=== PATIENT | female | born 1940 | race Caucasian/White ===

== ENCOUNTER 2016-03-06 14:45 | Outpatient (CLI) | payer MEDICARE ==
[2016-03-06 15:10] LABS: #Basophils 0.1 thou/uL (0.0-0.2); #Eosinphils 0.6 thou/uL (0.0-0.7); #Lymphocytes 2.8 thou/uL (1.20-3.40); #Monocytes 0.6 thou/uL (0.11-0.59); #Neutrophils 4.8 thou/uL (1.40-6.50); %Basophils 1.1 % (0.0-1.0); %Eosinophils 6.8 % (0.0-10.0); %Lymphocytes 31.4 % (21.0-51.0); %Monocytes 6.6 % (0.0-10.0); %Neutrophils 54.1 % (42.0-75.0); Hemoglobin 14.1 g/dL (12.0-16.0); Mean Corpuscular HGB CONC 33.6 g/dL (32.0-36.0); Mean Corpuscular Hemoglobin 27.6 pg (27.0-31.0); Mean Platelet Volume 7.3 fL (7.4-10.4); Platelet Count 221 thou/uL (130-400); RBC Distribution Width 11.5 % (11.5-14.5); Red Blood Cell (RBC) Count 5.11 mill/uL (4.20-5.40); White Blood Cell (WBC) Count 8.9 thou/uL (4.8-10.8)
[2016-03-06 15:20] LABS: Anion Gap 15 mmol/L (10-20); BUN (Urea Nitrogen) 14 mg/dL (9.8-20.1); Calc. Creatinine Clearance 0 mL/min (70-130); Calcium 9.9 mg/dL (7.8-10.44); Carbon Dioxide 27 mmol/L (23-31); Cardiac Risk 3.6 (Less than 4.5); Chloride 104 mmol/L (98-107); Cholesterol 197 mg/dL (< 200 Desired); Estimated GFR-MDRD 56; Glucose 100 mg/dL (83-110); HDL Cholesterol 55 mg/dL (>60 Neg Risk); LDL Cholesterol, Calculated 94 mg/dL; Potassium 4.6 mmol/L (3.5-5.1); Sodium 141 mmol/L (136-145); Triglycerides 242 mg/dL (Less than 150)
== END 2016-03-06 14:46 | disposition home or self-care (01) ==
LOC: MADLABBHPM 14:45
PROVIDERS: ATTEND Family Medicine
DX: I10 Essential (primary) hypertension (principal)
CPT/HCPCS: 36415; 80048; 80061; 85025

== ENCOUNTER 2016-08-04 14:13 | Outpatient (CLI) | payer MEDICARE | END 2016-08-04 14:14 | disposition home or self-care (01) | LOC: MADEKG 14:13 | PROVIDERS: ATTEND Family Medicine | DX: R07.89 Other chest pain (principal) | CPT/HCPCS: 93005; 93010 ==

== ENCOUNTER 2017-11-19 14:35 | Outpatient (CLI) | payer MEDICARE ==
--- NOTE | 2017-11-19 16:02 | RAD ---
RIGHT KNEE RADIOGRAPHS FOUR VIEWS: Date: 11-19-17 Provided Clinical History: Right knee pain. FINDINGS: No evidence for fracture or other acute osseous abnormality. Tricompartmental osteophyte formation wi th conspicuous medial femorotibial joint space narrowing. Osseous excrescence emanating from the late ral aspect of the lateral femoral epicondyle may reflect osteochondroma and appears similar to 7-14-0 9. Prominent knee joint capsular distention compatible with effusion. IMPRESSION: Advanced right knee degenerative change. POS: ANAI
--- NOTE | 2017-11-19 16:06 | RAD ---
LEFT KNEE RADIOGRAPHS FOUR VIEWS: Date: 11-19-17 Provided Clinical History: Pain. FINDINGS: Tricompartmental osteophyte formation with medial femorotibial joint space narrowing. Mild genu varum . Alignment appears otherwise anatmic. Joint spaces appear otherwise preserved. Knee joint capsular d istention suggesting effusion. IMPRESSION: Advanced degenerative arthrosis of the left knee. POS: ANAI
== END 2017-11-19 14:36 | disposition home or self-care (01) ==
LOC: MADRAD 14:35
PROVIDERS: ATTEND Family Medicine
DX: M25.561 Pain in right knee (principal); M25.562 Pain in left knee; M17.0 Bilateral primary osteoarthritis of knee

== ENCOUNTER 2018-02-01 12:05 | Inpatient (IN) | payer MEDICARE ==
[2018-02-01 13:59] VITALS: BMI 35.9
[2018-02-01] MEDS ORDERED: Ondansetron ODT 4 MG TAB PO PRN (14:46)
[2018-02-01] MEDS: traMADol HCl 50 MG TAB PO PRN (17:16)
[2018-02-01] MEDS: HYDROcodone/Acetaminophen 5/325 mg Tablet PO PRN (19:23)
[2018-02-01] MEDS: Metoprolol Tartrate 50 MG TAB PO SCH (20:35)
[2018-02-01] MEDS: Docusate 100 MG CAP PO SCH (20:35)
--- NOTE | 2018-02-02 00:24 | HP ---
REASON FOR ADMISSION: Swing bed admission for PT/OT s/p right hip fracture HISTORY OF PRESENT ILLNESS: This is a pleasant 77-year-old female with history of hypertension, anxiety, and arthritis, who presented to the emergency room on 01/28/2018 status post fall in her home. The patient states that she tripped on an uneven area of carpet in her home and fell directly on her right hip. She was found to have proximal right femur fracture in the emergency room and therefore was admitted for open reduction and internal fixation by the Orthopedic Team. The patient underwent this surgery on the same day 01/28/[address] Saul Cross. Post-operative course has been uncomplicated thus far. The patient reports that her pain has been well controlled, although she has been somewhat reluctant to get up and ambulate per the physician's orders. She has been transferred here today for a planned continued physical therapy and occupational therapy until she can return home to independent living. The patient today states that she is doing well. She states she has been able to ambulate back and forth to the bathroom; although, is more fatigued than usual with this. She states she did not sleep well last night and her pain is currently not well controlled; although, she has not received any pain medications since arrival. She states she has been eating well and has no other complaints at this time. PAST MEDICAL HISTORY: 1. Hypertension. 2. 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 3. Generalized anxiety disorder. PAST SURGICAL HISTORY: 1. Appendectomy at age 9. 2. Right hip open reduction and internal fixation on 01/28/2018. FAMILY HISTORY: Noncontributory. SOCIAL HISTORY: The patient does not use alcohol, tobacco or illicit drug use. She lives with her grand-daughter [place]. She is . At baseline, she is independent on all of her ADLs. She does not have any advance directives, but does state that she would like to be do not resuscitate. She does not have a designated power of estate planning attorney. MEDICATIONS: 1. Tylenol 1000 mg every 6 hours p.r.n. 2. Flexeril 10 mg twice daily as needed. 3. Colace 100 mg twice daily. 4. Lovenox 40 mg daily. 5. Ferrous sulfate 325 mg once daily. 6. Lisinopril 20 mg once daily. 7. Metoprolol 50 mg twice daily. 8. Zofran 4 mg every 6 hours as needed. 9. MiraLax 17 g daily. 10. Tramadol 50 mg every 6 hours as needed for moderate pain. ALLERGIES: NONE. REVIEW OF SYSTEMS: A 10 point review of systems was completed and negative other than stated above. PHYSICAL EXAMINATION: VITAL SIGNS: The patient weight is 196 pounds. Current vital signs are, blood pressure 152/82, temperature is 98.2, heart rate is 82, respirations 20, and oxygen is 93% on room air. GENERAL: She is alert and oriented x3, in no apparent distress. She is resting calmly in the bed. She is cooperative. HEENT: Pupils are equally round and reactive to light. Sclerae nonicteric. Oropharynx is moist without erythema or exudates. NECK: Supple without thyromegaly or lymphadenopathy. HEART: Regular rate and rhythm. No murmurs, rubs or gallops. LUNGS: Clear to auscultation bilaterally. No wheezing, rales or rhonchi. ABDOMEN: Positive bowel sounds in all 4 quadrants. Soft, nontender and nondistended. EXTREMITIES: Negative for clubbing, cyanosis or edema. SKIN: Positive for right healing hip vertical incision with darshana in place with surrounding ecchymosis. Incision is well approximated with no drainage. NEUROLOGIC: No focal deficits. Cranial nerves 2 through 12 are grossly intact. She is noted to be weak upon ambulation. PSYCH: Negative for any anxiety or depression. LABS AND IMAGING: This morning, she had a CBC with white blood cell count of 6.4, hemoglobin of 9.6, hematocrit 29.3, and platelet count 196. ASSESSMENT AND PLAN: 1. Right hip fracture: s/p ORIF. The patient is on postop day #4. She will be admitted to the medical surgical unit for planned physical therapy and occupational therapy, status post recent fracture and surgery. The patient is already verbalizing her desire to return home as soon as possible. We did discuss the need for further physical therapy before she can return home safely to independent living. A hospital followup will be arranged for her to see Dr. Cross. Her pain will be controlled with hydrocodone, tramadol, and Tylenol as needed. She will be continued on deep venous thrombosis prophylaxis with continuing encouragement to ambulate. 2. Osteoarthritis of bilateral hips and knees. As above, we will continue physical therapy and pain control. 3. Hypertension. Blood pressure is currently well controlled on her home medications. We will continue to monitor. 4. Normocytic anemia. This is likely postoperative in nature as her hemoglobin is 12.4 upon admission. We will continue her on a daily iron supplement with stool softeners. 5. Constipation. The patient was noted to have constipation prior to her admission here today. We will continue her on a daily bowel regimen. 6. Deep venous thrombosis prophylaxis. The patient will be continued on Lovenox. 7. Code status. The patient is DNR per her wishes. 8. Disposition. I anticipate the patient needing at least 1 to 2 weeks prior to being able to discharge home. Although, she continues to be anxious to return home as soon as possible. We will continue to assess this on a daily basis. Job ID: [id number] MTDD
[2018-02-02] MEDS: traMADol HCl 50 MG TAB PO PRN (00:40)
[2018-02-02] MEDS: HYDROcodone/Acetaminophen 5/325 mg Tablet PO PRN ×4 (02:26→23:45)
[2018-02-02 05:11] LABS: #Basophils 0.1 thou/uL (0.0-0.2); #Eosinphils 0.7 thou/uL (0.0-0.7); #Monocytes 0.6 thou/uL (0.11-0.59); #Neutrophils 4.7 thou/uL (1.40-6.50); %Basophils 1.6 % (0.0-1.0); %Eosinophils 8.9 % (0.0-10.0); %Lymphocytes 24.5 % (21.0-51.0); %Monocytes 7.1 % (0.0-10.0); %Neutrophils 57.9 % (42.0-75.0); Hemoglobin 9.6 g/dL (12.0-16.0); Mean Corpuscular HGB CONC 32.6 g/dL (32.0-36.0); Mean Corpuscular Hemoglobin 25.9 pg (27.0-31.0); Mean Corpuscular Volume 79.5 fL (78.0-98.0); Mean Platelet Volume 6.9 fL (7.4-10.4); Platelet Count 206 thou/uL (130-400); Red Blood Cell (RBC) Count 3.71 mill/uL (4.20-5.40); White Blood Cell (WBC) Count 8.2 thou/uL (4.8-10.8)
[2018-02-02 05:17] LABS: Anion Gap 11 mmol/L (10-20); BUN (Urea Nitrogen) 16 mg/dL (9.8-20.1); Calc. Creatinine Clearance 88 mL/min (70-130); Calcium 8.7 mg/dL (7.8-10.44); Carbon Dioxide 27 mmol/L (23-31); Chloride 106 mmol/L (98-107); Estimated GFR-MDRD 72; Glucose 117 mg/dL (83-110); Potassium 3.8 mmol/L (3.5-5.1); Sodium 140 mmol/L (136-145)
[2018-02-02] MEDS: Metoprolol Tartrate 50 MG TAB PO SCH ×2 (08:51→20:30)
[2018-02-02] MEDS: Polyethylene Glycol 3350 17 GM Packet PO SCH (08:51)
[2018-02-02] MEDS: Enoxaparin Sodium 40 MG/0.4 ML SYRINGE SC SCH (08:51)
[2018-02-02] MEDS: Ferrous Sulfate 325 MG TAB PO SCH (08:51)
[2018-02-02] MEDS: Lisinopril 10 MG TAB PO SCH (08:52)
[2018-02-02] MEDS: Docusate 100 MG CAP PO SCH ×2 (08:53→20:30)
[2018-02-02] MEDS ORDERED: Metoprolol Tartrate 50 MG TAB PO SCH (09:00)
[2018-02-02] MEDS: busPIRone HCl 5 MG TAB PO SCH (20:30)
[2018-02-02] MEDS: Cyclobenzaprine 10 MG TAB PO PRN (23:48)
[2018-02-03] MEDS: traMADol HCl 50 MG TAB PO PRN ×2 (00:48→08:42)
[2018-02-03] MEDS: Acetaminophen 500 MG TAB PO PRN (03:27)
[2018-02-03] MEDS: HYDROcodone/Acetaminophen 5/325 mg Tablet PO PRN ×3 (06:25→20:55)
[2018-02-03] MEDS: Docusate 100 MG CAP PO SCH ×2 (08:39→20:54)
[2018-02-03] MEDS: Enoxaparin Sodium 40 MG/0.4 ML SYRINGE SC SCH (08:39)
[2018-02-03] MEDS: Lisinopril 10 MG TAB PO SCH (08:39)
[2018-02-03] MEDS: Metoprolol Tartrate 50 MG TAB PO SCH ×2 (08:40→20:54)
[2018-02-03] MEDS: busPIRone HCl 5 MG TAB PO SCH ×2 (08:40→20:54)
[2018-02-03] MEDS: Ferrous Sulfate 325 MG TAB PO SCH (08:40)
[2018-02-03] MEDS: Polyethylene Glycol 3350 17 GM Packet PO SCH (08:45)
[2018-02-03] MEDS: Cyclobenzaprine 10 MG TAB PO PRN ×2 (09:40→20:54)
[2018-02-03] MEDS ORDERED: Cyclobenzaprine 10 MG TAB PO SCH (11:00)
[2018-02-04] MEDS: traMADol HCl 50 MG TAB PO PRN ×2 (02:17→23:09)
[2018-02-04] MEDS: HYDROcodone/Acetaminophen 5/325 mg Tablet PO PRN ×3 (04:25→20:29)
[2018-02-04] MEDS: busPIRone HCl 5 MG TAB PO SCH ×2 (07:44→20:28)
[2018-02-04] MEDS: Ferrous Sulfate 325 MG TAB PO SCH (07:45)
[2018-02-04] MEDS: Lisinopril 10 MG TAB PO SCH (07:45)
[2018-02-04] MEDS: Enoxaparin Sodium 40 MG/0.4 ML SYRINGE SC SCH (07:45)
[2018-02-04] MEDS: Polyethylene Glycol 3350 17 GM Packet PO SCH (07:45)
[2018-02-04] MEDS: Cyclobenzaprine 10 MG TAB PO PRN ×2 (07:45→20:30)
[2018-02-04] MEDS: Metoprolol Tartrate 50 MG TAB PO SCH ×2 (07:45→20:29)
[2018-02-04] MEDS: Docusate 100 MG CAP PO SCH ×2 (07:46→20:28)
[2018-02-05] MEDS: Acetaminophen 500 MG TAB PO PRN (00:57)
[2018-02-05] MEDS: HYDROcodone/Acetaminophen 5/325 mg Tablet PO PRN ×3 (03:50→21:18)
[2018-02-05] MEDS: Metoprolol Tartrate 50 MG TAB PO SCH ×2 (09:31→20:03)
[2018-02-05] MEDS: Polyethylene Glycol 3350 17 GM Packet PO SCH (09:31)
[2018-02-05] MEDS: Enoxaparin Sodium 40 MG/0.4 ML SYRINGE SC SCH (09:31)
[2018-02-05] MEDS: Docusate 100 MG CAP PO SCH ×2 (09:31→20:04)
[2018-02-05] MEDS: Lisinopril 10 MG TAB PO SCH (09:31)
[2018-02-05] MEDS: Ferrous Sulfate 325 MG TAB PO SCH (09:31)
[2018-02-05] MEDS: busPIRone HCl 5 MG TAB PO SCH ×2 (09:31→20:04)
[2018-02-05] MEDS: Famotidine 20 MG TAB PO SCH (18:31)
[2018-02-05] MEDS: traZODone HCl 50 MG TAB PO PRN (20:02)
[2018-02-06] MEDS: Cyclobenzaprine 10 MG TAB PO PRN (01:13)
[2018-02-06] MEDS: traMADol HCl 50 MG TAB PO PRN (01:13)
[2018-02-06] MEDS: HYDROcodone/Acetaminophen 5/325 mg Tablet PO PRN ×3 (05:41→20:31)
[2018-02-06] MEDS: Docusate 100 MG CAP PO SCH ×2 (08:59→20:28)
[2018-02-06] MEDS: Ferrous Sulfate 325 MG TAB PO SCH (08:59)
[2018-02-06] MEDS: Lisinopril 10 MG TAB PO SCH (08:59)
[2018-02-06] MEDS: Enoxaparin Sodium 40 MG/0.4 ML SYRINGE SC SCH (09:00)
[2018-02-06] MEDS: busPIRone HCl 5 MG TAB PO SCH ×2 (09:00→20:28)
[2018-02-06] MEDS: Metoprolol Tartrate 50 MG TAB PO SCH ×2 (09:00→20:28)
[2018-02-06] MEDS: Polyethylene Glycol 3350 17 GM Packet PO SCH (09:01)
[2018-02-06] MEDS: Famotidine 20 MG TAB PO SCH (17:22)
[2018-02-07] MEDS: Cyclobenzaprine 10 MG TAB PO PRN (00:32)
[2018-02-07] MEDS: traMADol HCl 50 MG TAB PO PRN (00:33)
[2018-02-07] MEDS: HYDROcodone/Acetaminophen 5/325 mg Tablet PO PRN ×2 (03:46→19:04)
[2018-02-07] MEDS: Ferrous Sulfate 325 MG TAB PO SCH (09:12)
[2018-02-07] MEDS: Lisinopril 10 MG TAB PO SCH (09:12)
[2018-02-07] MEDS: Enoxaparin Sodium 40 MG/0.4 ML SYRINGE SC SCH (09:12)
[2018-02-07] MEDS: Polyethylene Glycol 3350 17 GM Packet PO SCH (09:12)
[2018-02-07] MEDS: Docusate 100 MG CAP PO SCH ×3 (09:13→20:48)
[2018-02-07] MEDS: busPIRone HCl 5 MG TAB PO SCH ×2 (09:13→20:48)
[2018-02-07] MEDS: Metoprolol Tartrate 50 MG TAB PO SCH ×2 (09:13→20:48)
[2018-02-07] MEDS: Famotidine 20 MG TAB PO SCH (17:36)
[2018-02-07] MEDS: traZODone HCl 50 MG TAB PO PRN (20:48)
[2018-02-08] MEDS: HYDROcodone/Acetaminophen 5/325 mg Tablet PO PRN ×3 (02:46→20:31)
[2018-02-08 05:21] LABS: #Basophils 0.1 thou/uL (0.0-0.2); #Eosinphils 0.6 thou/uL (0.0-0.7); #Monocytes 0.6 thou/uL (0.11-0.59); #Neutrophils 3.4 thou/uL (1.40-6.50); %Basophils 1.4 % (0.0-1.0); %Eosinophils 9.2 % (0.0-10.0); %Lymphocytes 29.7 % (21.0-51.0); %Monocytes 8.7 % (0.0-10.0); %Neutrophils 51.1 % (42.0-75.0); Hemoglobin 9.4 g/dL (12.0-16.0); Mean Corpuscular Hemoglobin 26.8 pg (27.0-31.0); Mean Platelet Volume 6.6 fL (7.4-10.4); Platelet Count 244 thou/uL (130-400); RBC Distribution Width 15.2 % (11.5-14.5); Red Blood Cell (RBC) Count 3.51 mill/uL (4.20-5.40); White Blood Cell (WBC) Count 6.6 thou/uL (4.8-10.8)
[2018-02-08] MEDS: busPIRone HCl 5 MG TAB PO SCH ×2 (08:37→20:29)
[2018-02-08] MEDS: Docusate 100 MG CAP PO SCH ×2 (08:37→20:29)
[2018-02-08] MEDS: Ferrous Sulfate 325 MG TAB PO SCH (08:37)
[2018-02-08] MEDS: Polyethylene Glycol 3350 17 GM Packet PO SCH (08:38)
[2018-02-08] MEDS: Lisinopril 10 MG TAB PO SCH (08:38)
[2018-02-08] MEDS: Metoprolol Tartrate 50 MG TAB PO SCH ×2 (08:38→20:29)
[2018-02-08] MEDS: Enoxaparin Sodium 40 MG/0.4 ML SYRINGE SC SCH (08:39)
[2018-02-08] MEDS: Famotidine 20 MG TAB PO SCH (17:34)
[2018-02-08] MEDS: traZODone HCl 50 MG TAB PO PRN (20:30)
[2018-02-09] MEDS: traMADol HCl 50 MG TAB PO PRN (00:02)
[2018-02-09] MEDS: Cyclobenzaprine 10 MG TAB PO PRN ×3 (00:02→23:33)
[2018-02-09] MEDS: Lisinopril 10 MG TAB PO SCH (07:58)
[2018-02-09] MEDS: Docusate 100 MG CAP PO SCH ×2 (07:58→20:55)
[2018-02-09] MEDS: HYDROcodone/Acetaminophen 5/325 mg Tablet PO PRN ×2 (07:59→23:33)
[2018-02-09] MEDS: busPIRone HCl 5 MG TAB PO SCH ×2 (08:00→20:55)
[2018-02-09] MEDS: Ferrous Sulfate 325 MG TAB PO SCH (08:00)
[2018-02-09] MEDS: Metoprolol Tartrate 50 MG TAB PO SCH ×2 (08:00→20:55)
[2018-02-09] MEDS: Enoxaparin Sodium 40 MG/0.4 ML SYRINGE SC SCH (08:01)
[2018-02-09] MEDS: Polyethylene Glycol 3350 17 GM Packet PO SCH (08:02)
[2018-02-09] MEDS: Famotidine 20 MG TAB PO SCH (17:24)
[2018-02-10] MEDS: traMADol HCl 50 MG TAB PO PRN ×2 (05:07→20:15)
[2018-02-10] MEDS: Enoxaparin Sodium 40 MG/0.4 ML SYRINGE SC SCH (07:32)
[2018-02-10] MEDS: Polyethylene Glycol 3350 17 GM Packet PO SCH (07:33)
[2018-02-10] MEDS: Metoprolol Tartrate 50 MG TAB PO SCH ×2 (07:33→20:12)
[2018-02-10] MEDS: Docusate 100 MG CAP PO SCH ×2 (07:33→07:35)
[2018-02-10] MEDS: HYDROcodone/Acetaminophen 5/325 mg Tablet PO PRN ×2 (07:33→18:55)
[2018-02-10] MEDS: busPIRone HCl 5 MG TAB PO SCH ×2 (07:33→20:10)
[2018-02-10] MEDS: Ferrous Sulfate 325 MG TAB PO SCH (07:34)
[2018-02-10] MEDS: Lisinopril 10 MG TAB PO SCH (07:34)
[2018-02-10] MEDS: Cyclobenzaprine 10 MG TAB PO PRN (07:35)
[2018-02-10] MEDS: Famotidine 20 MG TAB PO SCH (17:52)
[2018-02-10] MEDS: traZODone HCl 50 MG TAB PO PRN (20:10)
[2018-02-11] MEDS: Cyclobenzaprine 10 MG TAB PO PRN (02:07)
[2018-02-11] MEDS: Acetaminophen 500 MG TAB PO PRN (02:07)
[2018-02-11 08:35] VITALS: BP 175/81; TEMP 98
[2018-02-11] MEDS: Enoxaparin Sodium 40 MG/0.4 ML SYRINGE SC SCH (08:38)
[2018-02-11] MEDS: Metoprolol Tartrate 50 MG TAB PO SCH (08:40)
[2018-02-11] MEDS: busPIRone HCl 5 MG TAB PO SCH (08:40)
[2018-02-11] MEDS: Docusate 100 MG CAP PO SCH (08:40)
[2018-02-11] MEDS: Lisinopril 10 MG TAB PO SCH (08:41)
[2018-02-11] MEDS: Polyethylene Glycol 3350 17 GM Packet PO SCH (08:41)
[2018-02-11] MEDS: Ferrous Sulfate 325 MG TAB PO SCH (08:41)
[2018-02-11] MEDS: HYDROcodone/Acetaminophen 5/325 mg Tablet PO PRN (14:28)
--- NOTE | 2018-02-13 10:04 | DIS ---
DATE OF ADMISSION: 02/01/2018 DATE OF DISCHARGE: 02/11/2018 PRIMARY DIAGNOSIS: Right hip fracture, status post open reduction and internal fixation. SECONDARY DIAGNOSES: 1. Generalized deconditioning. 2. Acute anxiety. 3. Normocytic anemia. 4. Hypertension. 5. Constipation. HOSPITAL COURSE: This is a pleasant 77-year-old female with past medical history significant for hypertension and anxiety that sustained a ground level fall in her home on January 28, 2018. She was admitted to [facility] that same day and underwent open reduction and internal fixation by Dr. Saul Cross. Her postoperative course was uncomplicated and was transferred to [facility] on 02/01/2018 for planned physical therapy and occupational therapy. The patient has progressed well since admission and she is now ambulatory with a rolling walker, walking between 250 and 300 feet without any significant unsteadiness. The patient has been able to resume independence on her ADLs and was seen by her orthopedic surgeon yesterday who cleared her for discharge. While in the hospital, the patient's blood pressure medication was adjusted due to elevated blood pressure readings as well as she was started back on her anxiety medication due to persistent daily uncontrolled symptoms. The patient had improvement on both conditions prior to discharge and on day of discharge, was ambulatory with good control of her pain and requesting to be sent home. DISCHARGE MEDICATIONS: Medications upon discharge: 1. Hydrocodone-acetaminophen 5-325 mg one tab every 8 hours as needed, dispensed #20. 2. Buspirone 5 mg twice daily. 3. Cyclobenzaprine 10 mg every 8 hours as needed. 4. Ferrous sulfate 325 mg once daily. 5. Metoprolol 50 mg twice daily. 6. Lisinopril 20 mg twice daily. CONDITION UPON DISCHARGE: Good. ACTIVITY UPON DISCHARGE: She is to be walking with a rolling walker with fall risk precautions. No specific orthopedic limitations. DIET UPON DISCHARGE: She will continue a regular diet. FOLLOWUP: The patient will establish care with outpatient physical therapy center to continue her therapy 2 times a week for an additional 6 weeks as well as return to PCP office, Dr. Browne in 2 weeks. Job ID: [id number]
== END 2018-02-11 15:30 | disposition home or self-care (01) | DRG 561 ==
LOC: MADMS 12:05
PROVIDERS: ADMIT Family Medicine; ATTEND Family Medicine
DX: S72.001D Fracture of unspecified part of neck of right femur, subsequent encounter for closed fracture with routine healing (principal); R53.81 Other malaise; F41.9 Anxiety disorder, unspecified; D64.9 Anemia, unspecified; Z66 Do not resuscitate; I10 Essential (primary) hypertension; K59.00 Constipation, unspecified; M16.0 Bilateral primary osteoarthritis of hip; M17.0 Bilateral primary osteoarthritis of knee; Z90.89 Acquired absence of other organs; Z98.890 Other specified postprocedural states; Z79.899 Other long term (current) drug therapy; W01.0XXD Fall on same level from slipping, tripping and stumbling without subsequent striking against object, subsequent encounter
CPT/HCPCS: 36415; 80048; 85025; G8978-GP-CL; G8979-GP-CJ; G8987-GO-CK; G8988-GO-CH; J1650

== ENCOUNTER 2018-07-04 12:33 | Emergency (ER) | payer MEDICARE ==
[2018-07-04 12:54] LABS: Bilirubin Negative (Negative); Blood, Urine Negative (Negative); Clarity Hazy (Clear); Glucose, Urine (Dipstick) Negative (Negative); Leukocyte Moderate (Negative); Nitrite Positive (Negative); Protein, Urine (Dipstick) Negative (Neg-Trace); Urobilinogen 0.2 mg/dL (0.2-1.0)
[2018-07-04 12:55] LABS: Specific Gravity, Urine 1.009 (1.002-1.036)
[2018-07-04 12:59] LABS: Bacteria/HPF 2+ HPF (None Seen); RBC/HPF None Seen HPF (0-3); Squamous Epithelial 0-3 HPF (0-3)
[2018-07-04 13:51] LABS: #Basophils 0.1 thou/uL (0.0-0.2); #Eosinphils 0.6 thou/uL (0.0-0.7); #Lymphocytes 2.1 thou/uL (1.20-3.40); #Monocytes 0.5 thou/uL (0.11-0.59); %Basophils 1.5 % (0.0-1.0); %Eosinophils 10.2 % (0.0-10.0); %Lymphocytes 33.4 % (21.0-51.0); %Neutrophils 47.9 % (42.0-75.0); Hemoglobin 10.7 g/dL (12.0-16.0); Mean Corpuscular HGB CONC 31.3 g/dL (32.0-36.0); Mean Corpuscular Hemoglobin 24.6 pg (27.0-31.0); Mean Corpuscular Volume 78.6 fL (78.0-98.0); Platelet Count 230 thou/uL (130-400); RBC Distribution Width 13.1 % (11.5-14.5); Red Blood Cell (RBC) Count 4.32 mill/uL (4.20-5.40); White Blood Cell (WBC) Count 6.3 thou/uL (4.8-10.8)
--- NOTE | 2018-07-04 13:54 | CT ---
CT Brain WO Con: 07/04/2018 1:34 PM CLINICAL HISTORY: Head injury. IMAGING TECHNIQUE: Multiple CT images were obtained of the brain without IV contrast. COMPARISON: None. FINDINGS: Infarct: No acute infarct evident. Hemorrhage: None.. Hydrocephalus: None.. Basal cisterns: Normal.. Cerebral parenchyma: There is mild chronic small vessel white matter ischemic change.. Midline shift: None.. Cerebellum: Normal. Brainstem: Normal. OTHER: Calvarium: Intact.. Visualized Paranasal sinuses: Clear.. Extracranial soft tissues:Normal. IMPRESSION: No acute intracranial abnormality.
[2018-07-04 13:57] LABS: INR-International Normal Ratio 0.9; Prothrombin Time 12.7 SEC (12.0-14.7)
[2018-07-04 14:09] LABS: ALT (SGPT) 8 U/L (8-55); AST (SGOT) 12 U/L (5-34); Albumin 3.8 g/dL (3.4-4.8); Alkaline Phosphatase 79 U/L (40-150); Anion Gap 10 mmol/L (10-20); BUN (Urea Nitrogen) 18 mg/dL (9.8-20.1); Bilirubin, Total 0.6 mg/dL (0.2-1.2); Calc. Creatinine Clearance 0 mL/min (70-130); Calcium 9.4 mg/dL (7.8-10.44); Carbon Dioxide 27 mmol/L (23-31); Chloride 108 mmol/L (98-107); Estimated GFR-MDRD 60; Globulin 2.9 g/dL (2.4-3.5); Glucose 102 mg/dL (83-110); Potassium 4.9 mmol/L (3.5-5.1); Protein, Total 6.7 g/dL (6.0-8.3); Sodium 140 mmol/L (136-145)
[2018-07-04] MEDS ORDERED: Cephalexin 250 MG CAP ONE (14:16)
[2018-07-04] MEDS ORDERED: Aspirin Chewable 81 MG TAB ONE (14:16)
== END 2018-07-04 14:25 | disposition home or self-care (01) ==
LOC: MADERS 12:33
DX: N39.0 Urinary tract infection, site not specified (principal); R47.1 Dysarthria and anarthria; E78.5 Hyperlipidemia, unspecified; I10 Essential (primary) hypertension; Z79.899 Other long term (current) drug therapy
CPT/HCPCS: 36415; 70450; 80053; 81003; 81015; 84484; 85025; 85610; 87077; 87086; 87186; 93005

== ENCOUNTER 2018-09-17 14:54 | Emergency (ER) | payer MEDICARE ==
--- NOTE | 2018-09-17 16:02 | RAD ---
LEFT KNEE 4 VIEWS: HISTORY: Left knee pain COMPARISON: 11/19/2017 FINDINGS: Advanced degenerative changes are again seen. No fracture, dislocation or bony destruction is identif ied.
== END 2018-09-17 16:16 | disposition home or self-care (01) ==
LOC: MADERS 14:54
DX: M17.12 Unilateral primary osteoarthritis, left knee (principal); E78.5 Hyperlipidemia, unspecified; I10 Essential (primary) hypertension

== ENCOUNTER 2019-02-26 14:19 | Emergency (ER) | payer MEDICARE ==
[~2019-02-26 14:19] MED LIST: Iopamidol 370 76% 125 ML VIAL FS ONE; Sodium Chloride 0.9% 100 ML BAG ONE
[2019-02-26] MEDS ORDERED: Aspirin Chewable 81 MG TAB ONE (14:59)
[2019-02-26] MEDS ORDERED: Nitroglycerin 0.4 MG TAB 1 EACH ONE (14:59)
--- NOTE | 2019-02-26 15:04 | RAD ---
XR Chest 1 View Portable HISTORY: Dyspnea COMPARISON: 01/28/2018 FINDINGS: The heart size is normal. The lungs are well expanded without focal areas of consolidation, pneumothorax or pleural effusions. IMPRESSION: No radiographic evidence of acute cardiopulmonary process.
[2019-02-26 15:14] LABS: ALT (SGPT) 10 U/L (8-55); AST (SGOT) 21 U/L (5-34); Albumin 4.1 g/dL (3.4-4.8); Alkaline Phosphatase 102 U/L (40-110); Anion Gap 18 mmol/L (10-20); BUN (Urea Nitrogen) 17 mg/dL (9.8-20.1); Bilirubin, Total 0.8 mg/dL (0.2-1.2); Calc. Creatinine Clearance 0 mL/min (70-130); Calcium 9.4 mg/dL (7.8-10.44); Carbon Dioxide 19 mmol/L (23-31); Chloride 104 mmol/L (98-107); Estimated GFR-MDRD 64; Globulin 3.3 g/dL (2.4-3.5); Glucose 122 mg/dL (83-110); Lipase 29 U/L (8-78); Potassium 4.3 mmol/L (3.5-5.1); Protein, Total 7.4 g/dL (6.0-8.3); Sodium 137 mmol/L (136-145)
[2019-02-26 15:20] LABS: #Basophils 0.1 thou/uL (0.0-0.2); #Eosinphils 0.5 thou/uL (0.0-0.7); #Lymphocytes 2.1 thou/uL (1.20-3.40); #Monocytes 0.6 thou/uL (0.11-0.59); #Neutrophils 7.9 thou/uL (1.40-6.50); %Basophils 0.9 % (0.0-1.0); %Eosinophils 4.2 % (0.0-10.0); %Lymphocytes 18.5 % (21.0-51.0); %Monocytes 5.7 % (0.0-10.0); %Neutrophils 70.7 % (42.0-75.0); Hemoglobin 9.6 g/dL (12.0-16.0); Hypochromia SLIGHT = 6-15 cells (100X) (0-5/hpf); MDiff Complete? YES; Mean Corpuscular HGB CONC 29.8 g/dL (32.0-36.0); Mean Corpuscular Hemoglobin 20.6 pg (27.0-31.0); Mean Corpuscular Volume 69.2 fL (78.0-98.0); Mean Platelet Volume 7.9 fL (7.4-10.4); Microcytosis SLIGHT = 6-15 cells (100X) (0-5/hpf); Platelet Count 270 thou/uL (130-400); RBC Distribution Width 13.2 % (11.5-14.5); Red Blood Cell (RBC) Count 4.67 mill/uL (4.20-5.40); White Blood Cell (WBC) Count 11.2 thou/uL (4.8-10.8)
[2019-02-26 15:28] LABS: Bilirubin Negative (Negative); Blood, Urine Negative (Negative); Clarity Hazy (Clear); Glucose, Urine (Dipstick) Negative (Negative); Leukocyte Small (Negative); Nitrite Negative (Negative); Protein, Urine (Dipstick) Negative (Neg-Trace); Urobilinogen 0.2 mg/dL (Less than 2)
[2019-02-26 15:35] LABS: Bacteria/HPF Rare-Few HPF (None Seen); Mucous/LPF 2+ LPF (<2+); RBC/HPF None Seen HPF (0-3)
--- NOTE | 2019-02-26 16:05 | CT ---
CT ANGIO OF CHEST PERFORMED WITH INTRAVENOUS CONTRAST ENHANCEMENT WITH 3D RECONSTRUCTIONS: 02/26/19 HISTORY: Chest pain. The lungs are clear of any infiltrative process. There is no significant mediastinal or hilar adenopathy. A large hiatal hernia is noted. Pulmonary arteries are well opacified. There is no CT evidence for pulmonary embolus. Gallbladder is distended. There is gallbladder wall thickening and a large gallstone is noted. IMPRESSION: 1. No CT evidence of pulmonary embolus. 2. Distended gallbladder with gallbladder wall thickening and large gallstone. 3. Large hiatal hernia. POS: OFF
[2019-02-26] MEDS ORDERED: Piperacillin/Tazobactam 3.375 GM VIAL ONE (16:17)
[2019-02-26] MEDS ORDERED: Sodium Chloride 0.9% 100 ML ONE (16:18)
== END 2019-02-26 17:30 | disposition short-term general hospital (02) ==
LOC: MADERS 14:19
DX: K80.00 Calculus of gallbladder with acute cholecystitis without obstruction (principal); D50.9 Iron deficiency anemia, unspecified; E78.5 Hyperlipidemia, unspecified; I10 Essential (primary) hypertension; Z79.82 Long term (current) use of aspirin; Z79.899 Other long term (current) drug therapy
CPT/HCPCS: 71045; 71275; 80053; 81003; 81015; 83690; 83880; 84484; 85025; 85379; 93005; 94760; 96365; J2543; J3490; Q9967

== ENCOUNTER 2021-08-02 14:59 | Outpatient (CLI) | payer MEDICARE ==
[2021-08-02 15:48] LABS: #Basophils 0.1 thou/uL (0.0-0.2); #Eosinphils 0.7 thou/uL (0.0-0.7); #Lymphocytes 2.5 thou/uL (1.20-3.40); #Monocytes 0.5 thou/uL (0.11-0.59); %Basophils 0.7 % (0.0-1.0); %Eosinophils 7.6 % (0.0-10.0); %Lymphocytes 28.3 % (21.0-51.0); %Neutrophils 57.3 % (42.0-75.0); Hemoglobin 9.7 g/dL (12.0-16.0); Mean Corpuscular HGB CONC 29.4 g/dL (32.0-36.0); Mean Corpuscular Hemoglobin 19.8 pg (27.0-31.0); Mean Corpuscular Volume 67.5 fL (78.0-98.0); Mean Platelet Volume 9.2 fL (7.4-10.4); Platelet Count 252 thou/uL (130-400); RBC Distribution Width 15.7 % (11.5-14.5); White Blood Cell (WBC) Count 8.8 thou/uL (4.8-10.8)
[2021-08-02 15:49] LABS: Anisocytosis SLIGHT = 6-15 cells (100X) (0-5/hpf); Hypochromia SLIGHT = 6-15 cells (100X) (0-5/hpf); MDiff Complete? YES; Microcytosis SLIGHT = 6-15 cells (100X) (0-5/hpf); Platelet Morphology Comment Appears Adequate
[2021-08-02 15:52] LABS: ALT (SGPT) 10 U/L (8-55); AST (SGOT) 16 U/L (5-34); Albumin 3.9 g/dL (3.4-4.8); Alkaline Phosphatase 75 U/L (40-110); Anion Gap 17 mmol/L (10-20); BUN (Urea Nitrogen) 24 mg/dL (9.8-20.1); Bilirubin, Total 0.4 mg/dL (0.2-1.2); Calc. Creatinine Clearance 0 mL/min (70-130); Calcium 9.5 mg/dL (7.8-10.44); Carbon Dioxide 23 mmol/L (23-31); Chloride 107 mmol/L (98-107); Globulin 3.2 g/dL (2.4-3.5); Glucose 110 mg/dL (83-110); Potassium 4.7 mmol/L (3.5-5.1); Protein, Total 7.1 g/dL (5.8-8.1); Sodium 142 mmol/L (136-145)
[2021-08-02 22:09] LABS: Hemoglobin A1c 5.8 % (4.0-6.0)
== END 2021-08-02 15:00 | disposition home or self-care (01) ==
LOC: MADLAB 14:59
PROVIDERS: ATTEND Family Medicine
DX: R53.83 Other fatigue (principal); R42 Dizziness and giddiness
CPT/HCPCS: 36415; 80053; 83036; 84443; 85025

== ENCOUNTER 2022-02-10 16:27 | Emergency (ER) | payer MEDICARE ==
[2022-02-10] MEDS ORDERED: predniSONE 20 MG TAB ONE ×2 (18:15→18:16)
[2022-02-10] MEDS ORDERED: predniSONE 10 MG TAB ONE (18:15)
[2022-02-10] MEDS ORDERED: diphenhydrAMINE 25 MG CAP ONE (18:15)
== END 2022-02-10 18:20 | disposition home or self-care (01) ==
LOC: MADERS 16:27
DX: T63.441A Toxic effect of venom of bees, accidental (unintentional), initial encounter (principal); I10 Essential (primary) hypertension
CPT/HCPCS: 99282; J7512

== ENCOUNTER 2022-04-27 18:12 | Emergency (ER) | payer MEDICARE ==
[~2022-04-27 18:12] MED LIST changes: +Iopamidol 370 76% 100 ML VIAL ONE; -Iopamidol 370 76% 125 ML VIAL FS ONE; -Sodium Chloride 0.9% 100 ML BAG ONE
[2022-04-27] MEDS ORDERED: Ondansetron PF 4 MG/2 ML Vial ONE (18:55)
[2022-04-27] MEDS ORDERED: Mag-Al Plus 1200 MG/1200 MG/120 MG/30 ML UDCUP ONE (19:13)
[2022-04-27] MEDS ORDERED: Lidocaine Viscous Sol 2% 15 ml UD Cup ONE (19:13)
[2022-04-27] MEDS ORDERED: Aspirin Chewable 81 MG TAB ONE (19:13)
[2022-04-27 19:16] LABS: #Basophils 0.1 thou/uL (0.0-0.2); #Eosinphils 0.2 thou/uL (0.0-0.7); #Lymphocytes 1.9 thou/uL (1.20-3.40); #Monocytes 0.4 thou/uL (0.11-0.59); #Neutrophils 6.2 thou/uL (1.40-6.50); %Basophils 1.1 % (0.0-1.0); %Eosinophils 2.1 % (0.0-10.0); %Lymphocytes 21.6 % (21.0-51.0); %Monocytes 4.7 % (0.0-10.0); %Neutrophils 70.6 % (42.0-75.0); Hemoglobin 15.2 g/dL (12.0-16.0); Mean Corpuscular HGB CONC 33.9 g/dL (32.0-36.0); Mean Corpuscular Hemoglobin 27.8 pg (27.0-31.0); Mean Platelet Volume 6.4 fL (7.4-10.4); Platelet Count 253 10x3/uL (130-400); RBC Distribution Width 11.4 % (11.5-14.5); Red Blood Cell (RBC) Count 5.48 mill/uL (4.20-5.40); White Blood Cell (WBC) Count 8.8 10x3/uL (4.8-10.8)
[2022-04-27 19:34] LABS: ALT (SGPT) 7 U/L (8-55); AST (SGOT) 15 U/L (5-34); Albumin 4.2 g/dL (3.4-4.8); Alkaline Phosphatase 74 U/L (40-110); Anion Gap 14 mmol/L (10-20); BUN (Urea Nitrogen) 17 mg/dL (9.8-20.1); Bilirubin, Total 0.8 mg/dL (0.2-1.2); Calc. Creatinine Clearance 0 mL/min (70-130); Calcium 9.9 mg/dL (7.8-10.44); Carbon Dioxide 26 mmol/L (23-31); Chloride 104 mmol/L (98-107); Estimated GFR 59; Glucose 138 mg/dL (83-110); Lipase 25 U/L (8-78); Potassium 3.8 mmol/L (3.5-5.1); Protein, Total 7.2 g/dL (5.8-8.1); Sodium 140 mmol/L (136-145)
[2022-04-27] MEDS ORDERED: HYDROmorphone 0.5 MG/0.5 ML SYRINGE ONE (19:53)
== END 2022-04-27 21:21 | disposition home or self-care (01) ==
LOC: MADERS 18:12
DX: K44.9 Diaphragmatic hernia without obstruction or gangrene (principal); I10 Essential (primary) hypertension
CPT/HCPCS: 74177; 80053; 83690; 84484; 85025; 93005; 96374; 96375; J1170; J2405; Q9967

== ENCOUNTER 2022-06-18 19:38 | Emergency (ER) | payer MEDICARE ==
[2022-06-18] MEDS ORDERED: Sodium Chloride 0.9% 1,000 ML ONE (20:20)
[2022-06-18] MEDS ORDERED: Ondansetron PF 4 MG/2 ML Vial ONE (20:20)
[2022-06-18] MEDS ORDERED: Famotidine/PF 20 mg/2ml Vial ONE (20:21)
[2022-06-18 20:33] LABS: Eosinophils 1 % (0-10); Hemoglobin 15.6 g/dL (12.0-16.0); Lymphocytes 19 % (21-51); MDiff Complete? YES; Mean Corpuscular HGB CONC 33.4 g/dL (32.0-36.0); Mean Corpuscular Hemoglobin 28.5 pg (27.0-31.0); Mean Corpuscular Volume 85.5 fl (78.0-98.0); Mean Platelet Volume 8.7 fL (7.4-10.4); Monocytes 3 % (0-10); Neutrophil 77 % (42-75); Platelet Count 194 10x3/uL (130-400); Platelet Morphology Comment Appears Adequate; RBC Distribution Width 11.5 % (11.5-14.5); RBC Morphology Normal; Red Blood Cell (RBC) Count 5.45 mill/uL (4.20-5.40)
[2022-06-18 21:13] LABS: ALT (SGPT) Less than 7 U/L (8-55); AST (SGOT) 14 U/L (5-34); Albumin 3.5 g/dL (3.4-4.8); Alkaline Phosphatase 58 U/L (40-110); Anion Gap 11 mmol/L (10-20); BUN (Urea Nitrogen) 21 mg/dL (9.8-20.1); Bilirubin, Total 0.5 mg/dL (0.2-1.2); Calc. Creatinine Clearance 0 mL/min (70-130); Calcium 8.9 mg/dL (7.8-10.44); Carbon Dioxide 25 mmol/L (23-31); Chloride 108 mmol/L (98-107); Estimated GFR 66; Globulin 2.1 g/dL (2.4-3.5); Glucose 144 mg/dL (83-110); Lipase 21 U/L (8-78); Potassium 4.1 mmol/L (3.5-5.1); Protein, Total 5.6 g/dL (5.8-8.1); Sodium 140 mmol/L (136-145)
[2022-06-18] MEDS ORDERED: Mag-Al Plus 1200 MG/1200 MG/120 MG/30 ML UDCUP ONE (21:33)
[2022-06-18] MEDS ORDERED: Lidocaine Viscous Sol 2% 15 ml UD Cup ONE (21:33)
[2022-06-18] MEDS ORDERED: Ipratropium/Albuterol 3 ML NEB ONE (22:10)
== END 2022-06-18 23:30 | disposition left against medical advice (07) ==
LOC: MADERS 19:38
DX: K21.00 Gastro-esophageal reflux disease with esophagitis, without bleeding (principal); I10 Essential (primary) hypertension; Z79.899 Other long term (current) drug therapy; Z79.82 Long term (current) use of aspirin
CPT/HCPCS: 71045; 80053; 83690; 83880; 84484; 85025; 96361; 96374; 96375; J2405; J7050; J7620; S0028

== ENCOUNTER 2023-08-25 19:11 | Emergency (ER) | payer MEDICARE ==
[2023-08-25] MEDS ORDERED: Sodium Chloride 0.9% 500 ML ONE (20:22)
[2023-08-25] MEDS ORDERED: Ondansetron PF 4 MG/2 ML Vial ONE ×2 (20:22→20:46)
[2023-08-25 20:23] LABS: #Basophils 0.1 thou/uL (0.0-0.2); #Eosinphils 0.2 thou/uL (0.0-0.7); #Lymphocytes 2.5 thou/uL (1.20-3.40); #Monocytes 0.6 thou/uL (0.11-0.59); #Neutrophils 7.9 thou/uL (1.40-6.50); %Basophils 0.7 % (0.0-1.0); %Eosinophils 1.8 % (0.0-10.0); %Lymphocytes 21.9 % (21.0-51.0); %Monocytes 5.6 % (0.0-10.0); Hematocrit 50.5 % (36.0-47.0); Hemoglobin 16.1 g/dL (12.0-16.0); Mean Corpuscular HGB CONC 31.8 g/dL (32.0-36.0); Mean Corpuscular Hemoglobin 27.1 pg (27.0-31.0); Mean Corpuscular Volume 85.2 fl (78.0-98.0); Mean Platelet Volume 6.3 fL (7.4-10.4); Platelet Count 229 10x3/uL (130-400); RBC Distribution Width 12.3 % (11.5-14.5); Red Blood Cell (RBC) Count 5.92 mill/uL (4.20-5.40); White Blood Cell (WBC) Count 11.3 10x3/uL (4.8-10.8)
[2023-08-25 20:44] LABS: ALT (SGPT) 11 U/L (8-55); AST (SGOT) 14 U/L (5-34); Albumin 4.3 g/dL (3.4-4.8); Alkaline Phosphatase 74 U/L (40-110); Anion Gap 18 mmol/L (10-20); BUN (Urea Nitrogen) 16 mg/dL (9.8-20.1); Bilirubin, Total 0.9 mg/dL (0.2-1.2); Calc. Creatinine Clearance 0 mL/min (70-130); Carbon Dioxide 25 mmol/L (23-31); Chloride 104 mmol/L (98-107); Estimated GFR 54; Globulin 2.6 g/dL (2.4-3.5); Glucose 128 mg/dL (83-110); Lipase 42 U/L (8-78); Magnesium 2.2 mg/dL (1.6-2.6); Potassium 3.9 mmol/L (3.5-5.1); Protein, Total 6.9 g/dL (5.8-8.1); Sodium 143 mmol/L (136-145)
[2023-08-25] MEDS ORDERED: Glucagon 1 MG/ML KIT ONE (20:46)
[2023-08-25] MEDS ORDERED: diphenhydrAMINE 50 MG/ML VIAL ONE (21:10)
[2023-08-25] MEDS ORDERED: Metoclopramide HCl 10 MG (2 mL) VIAL ONE (21:10)
== END 2023-08-26 01:55 | disposition short-term general hospital (02) ==
LOC: MADERS 19:11
DX: T18.128A Food in esophagus causing other injury, initial encounter (principal); I10 Essential (primary) hypertension; R11.2 Nausea with vomiting, unspecified; K44.9 Diaphragmatic hernia without obstruction or gangrene; K56.2 Volvulus; Z79.899 Other long term (current) drug therapy
CPT/HCPCS: 71260; 80053; 83690; 83735; 85025; 93005; 96374; 96375; 96376; J1200; J1611; J2405; J2765; J7030

== ENCOUNTER 2024-12-22 10:53 | Outpatient (CLI) | payer MEDICARE | END 2024-12-22 10:54 | disposition home or self-care (01) | LOC: MADRAD 10:53 | DX: M79.651 Pain in right thigh (principal) ==